=== PATIENT | female | born 1955 | race African-American/Black ===

== ENCOUNTER 2017-12-22 09:09 | Emergency (ER) | payer OTHER ==
[2017-12-22 09:46] LABS: ABS Basophils 0.1 10^3/ul (0-0.2); ABS Eosinophils 0.3 10^3/ul (0-0.6); ABS Lymphocytes 2.2 10^3/ul (1.0-4.8); ABS Monocytes 0.5 10^3/ul (0-0.8); ABS Neutrophils 3.7 10^3/ul (1.5-7.7); ABS Nucleated RBC 0 10^3/ul; Eosinophil % 3.8 % (0-6); Hematocrit 37 % (35-47); Hemoglobin 12.4 g/dl (12.0-16.0); Lymphocyte % 32.8 % (25-47); Mean Corpuscular HGB Conc 33 g/dl (31-36); Mean Corpuscular Hemoglobin 30 pg (27-31); Mean Corpuscular Volume 90 fL (80-97); Mean Platelet Volume 8.5 um3 (7.4-10.4); Nucleated Red Blood Cells % 0.1; Platelet Count 233 10^3/ul (150-450); Red Blood Count 4.14 10^6/ul (4.00-5.40); Red Cell Distribution Width 15 % (10.5-15); White Blood Count 6.7 10^3/ul (3.5-10.8)
[2017-12-22 10:04] LABS: EGFR Non-African American 80.1 (>60)
[2017-12-22] MEDS ORDERED: Valsartan TAB* 80 MG PO ONE (10:09)
[2017-12-22 11:59] VITALS: BP 185/87
--- NOTE | 2017-12-22 17:57 | ED ---
Marino Forte Tenzin, scribed for Shalom Deluna MD on 12/22/17 at 0959 . Dizziness - HPI Summary HPI Summary: Pt is a 62 years old female with the history of HTN presenting to the ED complaining of dizziness and lightheaded this morning at work. Pt is currently on Valsartan for HTN. No aggravating and alleviating factors were noted. Per nurse, her BP was elevated this morning. Pt is also complaining of having a cold. She is taking mucinex for it. - History Of Current Complaint Chief Complaint: EDDizziness Stated Complaint: HIGH BP Time Seen by Provider: 12/22/17 09:38 Hx Obtained From: Patient Onset/Duration: Still Present Character: Lightheaded Aggravating Factor(s): Nothing Alleviating Factor(s): Nothing Associated Signs And Symptoms: Positive: Other: - she also has a cold. - Allergies/Home Medications Allergies/Adverse Reactions: Allergies Allergy/AdvReac Type Severity Reaction Status Date / Time lisinopril Allergy Intermediate Unknown Verified 12/22/17 09:31 Reaction Details Home Medications: Home Medications Allopurinol TAB* [Zyloprim 100 MG TAB*] 300 mg PO DAILY 12/22/17 [History Confirmed 12/22/17] Aspirin EC TAB* [Ecotrin EC Low Dose 81 MG*] 162 mg PO DAILY 12/22/17 [History Confirmed 12/22/17] Multivitamins/Minerals TAB* [Theragran/minerals TAB*] 1 tab PO DAILY 12/22/17 [ History Confirmed 12/22/17] Valsartan TAB* [Diovan TAB*] 160 mg PO DAILY 12/22/17 [History Confirmed ] PMH/Surg Hx/FS Hx/Imm Hx Cardiovascular History: Reports: Hx Hypertension Respiratory History: Denies: Hx Pulmonary Embolism Opthamlomology History: Denies: Hx Legally Blind EENT History: Denies: Hx Deafness Infectious Disease History: No Infectious Disease History: Denies: Traveled Outside the [place] in Last 30 Days - Family History Known Family History: Positive: Cardiac Disease - Mother Review of Systems Positive: Other - cold. Neurological: Other - lightheaded, dizzy. All Other Systems Reviewed And Are Negative: Yes Physical Exam - Summary Physical Exam Summary: Appearance: The patient is well-nourished in no acute distress and in no acute pain. Skin: The skin is warm and dry and skin color reflects adequate perfusion. HEENT: The head is normocephalic and atraumatic. The pupils are equal and reactive. The conjunctivae are clear and without drainage. Nares are patent and without drainage. Mouth reveals moist mucous membranes and the throat is without erythema and exudate. The external ears are intact. The ear canals are patent and without drainage. The tympanic membranes are intact. Neck: the neck is supple with full range of motion and non-tender. There are no carotid bruits. There is no neck vein distension. Respiratory: Chest is non-tender. Lungs are clear to auscultation and breath sounds are symmetrical and equal. Cardiovascular: Heart is regular rate and rhythm. There is no murmur or rub auscultated. There is no peripheral edema and pulses are symmetrical and equal. Abdomen: The abdomen is soft and non-tender. There are normal bowel sounds heard in all four quadrants and there is no organomegaly palpated. Musculoskeletal: There is no back tenderness noted. Extremities are non-tender with full range of motion. There is good capillary refill. There is no peripheral edema or calf tenderness elicited. Neurological: Patient is alert and oriented to person, place and time. The patient has symmetrical motor strength in all four extremities. Cranial nerves are grossly intact. Deep tendon reflexes are symmetrical and equal in all four extremities. Psychiatric: The patient has an appropriate affect and does not exhibit any anxiety or depression. Pt is obese. Triage Information Reviewed: Yes Vital Signs On Initial Exam: Initial Vitals Temp Pulse Resp BP Pulse Ox 96.9 F 82 16 173/105 96 12/22/17 09:11 12/22/17 09:11 12/22/17 09:11 12/22/17 09:11 12/22/17 09:11 Vital Signs Reviewed: Yes Diagnostics - Vital Signs Vital Signs Temp Pulse Resp BP Pulse Ox 12/22/17 09:11 96.9 F 82 16 173/105 96 - Laboratory Lab Results: Lab Results 12/22/17 Range/Units 09:39 WBC 6.7 (3.5-10.8) 10^3/ul RBC 4.14 (4.00-5.40) 10^6/ul Hgb 12.4 (12.0-16.0) g/dl Hct 37 (35-47) % MCV 90 (80-97) fL MCH 30 (27-31) pg MCHC 33 (31-36) g/dl RDW 15 (10.5-15) % Plt Count 233 (150-450) 10^3/ul MPV 8.5 (7.4-10.4) um3 Neut % (Auto) 55.3 (38-83) % Lymph % (Auto) 32.8 (25-47) % Bates % (Auto) 7.1 H (0-7) % Eos % (Auto) 3.8 (0-6) % Baso % (Auto) 1.0 (0-2) % Absolute Neuts (auto) 3.7 (1.5-7.7) 10^3/ul Absolute Lymphs (auto) 2.2 (1.0-4.8) 10^3/ul Absolute Monos (auto) 0.5 (0-0.8) 10^3/ul Absolute Eos (auto) 0.3 (0-0.6) 10^3/ul Absolute Basos (auto) 0.1 (0-0.2) 10^3/ul Absolute Nucleated RBC 0 10^3/ul Nucleated RBC % 0.1 Result Diagrams: 12/22/17 09:39 12/22/17 09:39 Lab Statement: Any lab studies that have been ordered have been reviewed, and results considered in the medical decision making process. - EKG 9:10 Cardiac Rate: NL - 80 BPM EKG Rhythm: Sinus Rhythm ST Segment: Normal Ectopy: None Dizzy Course/Dx - Course Course Of Treatment: Ms. 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 Her blood pressure was obtained and it was elevated and it was recommended to her that she come to the emergency department. She takes valsartan 160 mg a day for about the past year and did take it this morning. She's had a diagnosis of hypertension for about 5 years. Her blood pressure was elevated here but not critical and she was given another 80 mg of health Valsartan by mouth here while labs were were checked. There was no evidence for end organ damage and she felt better. 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 I gave her an additional 80 mg valsartan 10 prescription to increase her dose to 240 mg a day. Her blood pressure still elevated with this and she may need additional adjustments. - Diagnoses Provider Diagnoses: Hypertension Discharge - Sign-Out/Discharge Documenting (check all that apply): Discharge/Admit/Transfer - Discharge - Discharge Plan Condition: Stable Disposition: HOME Prescriptions: Valsartan TAB* [Diovan TAB*] 80 mg PO DAILY #30 tab Patient Education Materials: Heart Healthy Diet (ED) Referrals: No Primary Care Phys,NOPCP [Primary Care Provider] - [facility] [Outside] - 3 Days Additional Instructions: Follow up with your primary care physician in three days. Return to the emergency department for any new or worsening symptoms. - Billing Disposition and Condition Condition: STABLE Disposition: Home The documentation as recorded by the Marino mccollum Tenzin accurately reflects the service I personally performed and the decisions made by me, Shalom Deluna MD.
== END 2017-12-22 12:29 | disposition home or self-care (01) ==
LOC: ED 09:09
DX: I10 Essential (primary) hypertension (principal); Z88.8 Allergy status to other drugs, medicaments and biological substances
CPT/HCPCS: 36415; 80053; 83605; 83735; 84443; 84484; 85025; 93005; 99283; A9270-GY